=== PATIENT | male | born 1960 | race Caucasian/White ===

== ENCOUNTER 2017-01-31 09:04 | Day surgery (SDC) | payer OTHER ==
[~2017-01-31] VITALS: Ht 180.3 cm; Wt 71.9 kg
[2017-01-31] VITALS (17 sets, daily range): BP systolic 100–135; BP diastolic 58–83; PULSE 52–115; RESP 16–32; Ht 180.3 cm; Wt 71.9 kg
[2017-01-31] MEDS ORDERED: MIDAZOLAM 1 MG/ML 2 ML INJ ONE (12:35)
[2017-01-31] MEDS ORDERED: PROPOFOL 20 ML ONE (12:35)
[2017-01-31] MEDS ORDERED: ONDANSETRON 4 MG INJ ONE (12:35)
[2017-01-31] MEDS ORDERED: DEXAMETHASONE 4 MG/ML 1 ML INJ ONE (12:35)
[2017-01-31] MEDS ORDERED: LIDOCAINE 2% (SDV) 5 ML INJ ONE (12:35)
[2017-01-31] MEDS ORDERED: FAMOTIDINE 20 MG INJ ONE (12:35)
--- NOTE | 2017-01-31 12:47 | HPN ---
Date/Time of Note Date/Time of Note DATE: 01/31/17 TIME: 12:46 Interval H&P Admission Note Pt. seen H&P reviewed: No system changes HORTENSIA PEREZ MD Jan 31, 2017 12:46
--- NOTE | 2017-01-31 12:48 | OPR ---
Date/Time of Note Date/Time of Note DATE: 01/31/17 TIME: 12:47 Operative Report Preoperative Diagnosis excison biopsy mass left index finger / palm/ hand Postoperative Diagnosis same Surgeon: HORTENSIA PEREZ MD Estimated Blood Loss: minimal Complications: None HORTENSIA PEREZ MD Jan 31, 2017 12:48
[2017-01-31] MEDS ORDERED: CEFAZOLIN 1 GM INJ ONE (13:22)
[2017-01-31] MEDS ORDERED: LIDOCAINE 1% (STERILE-PAK) 30 ML INJ ONE (13:33)
[2017-01-31] MEDS ORDERED: KETOROLAC 30 MG INJ ONE (13:47)
[2017-01-31] MEDS ORDERED: FENTAnyl 50 MCG/ML VIAL IV PRN ×2 (14:30)
[2017-01-31] MEDS ORDERED: HYDROmorphONE (0.2 MG/ML) 10ML SYG IV PRN ×2 (14:30)
[2017-01-31] MEDS ORDERED: ONDANSETRON 4 MG INJ IV PRN (14:30)
[2017-01-31] MEDS ORDERED: METOCLOPRAMIDE 10 MG INJ IV PRN (14:30)
[2017-01-31] MEDS ORDERED: DIPHENHYDRAMINE 50 MG INJ IV PRN (14:30)
--- NOTE | 2017-01-31 19:41 | OPR ---
DATE OF OPERATION: SURGEON: Hortensia Wyatt MD KINESIOLOGIST: Staff. ASSISTANT DIRECTOR OF NURSING: Deonte ANESTHESIA TECHNIQUE: General anesthetic by the anesthesiologist, local anesthetic by the surgeon. PREOPERATIVE DIAGNOSIS: Mass radial side, left hand index finger, a t the proximal phalanx. POSTOPERATIVE DIAGNOSIS: Mass radial side, left hand index finger, at the proximal phalanx. OPERATION PERFORMED: Excisional biopsy of mass. SURGICAL PAUSE: I examined the patient in the preop holding area, felt, identified the mass, shanika in the surgical incision, showed the drawn surgical incision to the patient, confirmed the operative procedure and plan with the patient in the preop holding. INFORMED CONSENT: At the time I scheduled the operative procedure, we talked about the risks and hazards of surgery discussing operative mortality, wound infection, nerve injury, good result, bad result, potential complications. Patient signed the note confirming that conversation. DESCRIPTION OF PROCEDURE: The patient was taken to surgery, anesthetized as above, sterile prep and drape performed. Pneumatic tourniquet inflated to 250 mmHg. Longitudinal incision was made along the midlateral line radial side index finger at the level of the proximal phalanx. A firm, white solid mass was found and circumferentially excised. The digital nerve was identified entirely unharmed. Wound was closed with interrupted Vicryl Rapide suture and a bulky dressing applied. What is this mass? I am not sure . I will await the pathologist report DISCHARGE MEDICATIONS 1. Hydrocodone with acetaminophen. 2. Keflex. FOLLOWUP: Will be in my office in 1 week. Dictated By: HORTENSIA KING/CHRYSTAL Conf#: [id number] DID#: [id number] MTDD
--- NOTE | 2017-02-02 10:29 | RADRPT ---
Vent Rate: 63 bpm RR Interval: 0 msec NE Interval: 158 msec QRS Duration: 84 msec QT Interval: 424 msec QTC Interval: 433 msec P-R-T [place]: 51 - -6 - 44 degrees Normal sinus rhythm Normal ECG Electronically Signed By: Patrice Rivera [id number]
== END 2017-01-31 16:20 | disposition home or self-care (01) ==
LOC: SDS 09:04
PROVIDERS: ATTEND Orthopaedic Surgery Hand Surgery
DX: L72.0 Epidermal cyst (principal); J45.909 Unspecified asthma, uncomplicated; F12.10 Cannabis abuse, uncomplicated
CPT/HCPCS: 11422; 88307; 93005; J0690; J1100; J1170; J1885; J2250; J2405; J3010; Z7512; Z7610